=== PATIENT | male | born 1940 ===

== ENCOUNTER 2018-06-03 19:49 | Emergency (ER) | payer OTHER ==
[~2018-06-03] VITALS: Ht 175.3 cm; Wt 83.9 kg
[2018-06-03] MEDS ORDERED: COZAAR100 MG (20:12)
[2018-06-03] MEDS ORDERED: LIPITOR20 MG (20:13)
[2018-06-03] MEDS ORDERED: TRICOR145 MG (20:13)
[2018-06-03] MEDS ORDERED: METFORMIN HCL850 MG (20:13)
== END 2018-06-03 22:03 | disposition home or self-care (01) ==
LOC: ER 19:49
DX: M54.2 Cervicalgia (principal); R07.89 Other chest pain